=== PATIENT | male | born 1950 | race Caucasian/White ===

== ENCOUNTER 2016-12-16 09:55 | Observation (INO) | payer OTHER ==
--- NOTE | ~2016-12-16 | HP ---
History And Physical [place] [id number] [facility] [place]. [address] NAME: SALAZAR MCCARTY : 46 STATUS : ADM Jessica PAT#: [id number] AGE: 66 ADM/REG DATE : 12/16/16 MR#: [id number] REPORT SERV DATE: 12/16/16 DICTATED BY: ANTONELLA SEGURA DATE: 12/16/16 REPORT STATUS : Draft TRANSCRIBED BY: RAFFI DATE: 12/16/16 DATE OF ADMISSION: 12/16/2016 CHIEF COMPLAINT: Shortness of breath, cough, wheezing, and ataxia. HISTORY OF PRESENT ILLNESS: The patient is a very pleasant 66-year-old white male. He reports he has been sick for about a week. He has complained of cough, shortness of breath, and sputum production. No documented fevers but they have not taken his temperature. He has had no chills and sweats however. He has had no abdominal pain. No chest pain. No diarrhea. No emesis. He has had some mild nausea. He has had no dysuria. He also reports he is dizzy. He feels dizzy when he gets up to walk and he has felt generally weak and really has not felt like moving around a lot. I questioned him about the dizziness and he states it is more he is off balance. He does have a history of previous stroke. Again no documented fevers. He is up to date on his flu and pneumonia vaccine. PAST MEDICAL HISTORY: 1. COPD. 2. BRUCE, on CPAP. 3. Stroke x2. 4. PAD with right carotid stent. 5. Nephrolithiasis. 6. GERD. 7. Hypertension. 8. BPH. 9. Previous pneumonia. 10.Previous urinary tract infection. PAST SURGICAL HISTORY: 1. Bilateral carpal tunnel replaced. 2. Right wrist surgery. 3. Lizette fundoplication. 4. Left shoulder surgery. ALLERGIES: NO KNOWN DRUG ALLERGIES. SOCIAL HISTORY: He is . He quit smoking in 2008 but he smoked 1-1/2 packs per day for 50 years. He is retired from building houses. He uses social alcohol but has not had a drink in a very long time. FAMILY HISTORY: Positive for COPD in his mother. His father of CAD at 63. HOME MEDICATIONS: Reviewed and attached. REVIEW OF SYSTEMS: Full 10-point review of systems obtained. Pertinent positives mentioned in the HPI. History And Physical [address] [address] NAME: SALAZAR MCCARTY : 46 STATUS : ADM Jessica PAT#: [id number] AGE: 66 ADM/REG DATE : 12/16/16 MR#: [id number] REPORT SERV DATE: 12/16/16 DICTATED BY: ANTONELLA SEGURA DATE: 12/16/16 REPORT STATUS : Draft TRANSCRIBED BY: RAFFI DATE: 12/16/16 PHYSICAL EXAMINATION: VITAL SIGNS: Sats are 94% on room air, respiratory rate 24, blood pressure 133/74, pulse is 90, and temperature is 97.6. GENERAL: Well-developed white male. HEENT: Normocephalic, atraumatic. Throat is clear. NECK: Supple. HEART: Regular rate and rhythm. LUNGS: He has expiratory wheezing throughout all lung aquino. ABDOMEN: Soft, nontender, nondistended. EXTREMITIES: Warm and dry. SKIN: Intact. NEUROLOGIC: He is alert. He is oriented to person, place, and time. Speech is intact. Cranial nerves 2 through 12 are intact. He has symmetrical strength and tone in all four extremities. LAB AND X-RAY: EKG shows sinus rhythm with no acute ST-T wave changes. H and H 13.6 and 44, white count is 13, and platelets are 267. Sodium 143, potassium 3.8, chloride 107, CO2 of 28, BUN and creatinine 30 and 1.09. Glucose 116. Chest x-ray is stable with a chronic elevation of the left hemidiaphragm. ASSESSMENT/PLAN: 1. COPD exacerbation. We will treat with steroids, nebs, O2, antibiotics, place in observation. Culture his sputum although he has no fever. He has a little bit of a white count, but he has been on p.o. steroids at home and he has no evidence of pneumonia on chest x-ray. We will cover him with doxycycline; DuoNeb; Pulmicort; and Solu-Medrol. 2. Ataxia. No other real neurological symptoms. Certainly he could just be weak from feeling ill from his COPD, but I am going to get MRI of his brain since he has a history of 2 previous strokes. 3. Deep venous thrombosis prophylaxis. Subcutaneous Lovenox. 4. History of BRUCE on CPAP. 5. History of hypertension, stable. 6. Disposition pending above aforementioned plan and workup. SOURAV/RAFFI Antonella Segura M.D. / [id number] CC: David Coronel Jr, MD Kent Grotefendt, M.D.
--- NOTE | ~2016-12-16 | DS ---
Discharge Summary [facility] [address] [place]. [address] NAME: SALAZAR MCCARTY : 46 STATUS : DIS Jessica PAT#: [id number] AGE: 66 ADM/REG DATE : 12/16/16 MR#: [id number] REPORT SERV DATE: 12/18/16 DICTATED BY: BOUBACAR JAVIER DATE: 12/17/16 REPORT STATUS : Draft TRANSCRIBED BY: MODVincent DATE: 12/17/16 ADMISSION DATE: 12/16/2016 DISCHARGE DATE: 12/17/2016 DISCHARGE DIAGNOSES: Include: 1. Acute chronic obstructive pulmonary disease exacerbation. 2. Ataxia. 3. Dizziness. 4. Mild leukocytosis. 5. Obstructive sleep apnea on current CPAP therapy. 6. History of CVA x2. 7. Back pain. 8. Lower extremity neuropathy. 9. History of lumbar surgery. DISCHARGE MEDICATIONS: Plavix 75 mg daily, doxycycline 100 mg twice a day for four more days, Cymbalta 120 mg daily, Zantac 150 mg twice a day, Amitiza 24 mcg capsule p.o. twice a day, Protonix 40 mg daily, Florastor 250 mg daily, Flomax 0.4 mg twice a day, Zoloft 100 mg at bedtime but recommended weaning off this medication, Tudorza Pressair 400 mcg one puff inhaled daily, Proventil one puff inhaled p.r.n. for shortness of breath, Dulera 200/5 mcg two puffs inhaled twice a day, Spiriva 18 mcg one capsule inhaled daily, Crestor 40 mg daily at bedtime, Flonase nasal spray 50 mcg inhaled daily p.r.n., Percocet 10/325 one tablet every six hours p.r.n. HISTORY OF PRESENT ILLNESS: This is a pleasant 66-year-old white male, who presented with shortness of breath, cough, wheezing, and ataxia. Please see initial H and P of Dr. Marcela Segura. This patient has been admitted to the Hospitalist service for further evaluation and treatment. Started on some IV steroid therapy, antibiotic treatment, and aggressive nebulizer therapy. All of this improved his symptoms dramatically. By the following day, he was able to be ambulating in the hallway with an oxygen saturation of 94%, feeling much better. His orthostatics were reviewed and within normal limits. His white blood cells had come down. He did have an MRI of the brain during this admission. It was showing no acute process. He related to me that his CPAP machine is currently malfunctioning, and I have instructed him to obtain a new CPAP through his [employer] company. In review of all his medications, I did recommend him weaning off his sertraline as he is on that plus a rather large dose of Cymbalta, and I have instructed him to follow up with his primary care, Dr. Grullon to further discuss that and overall given the patient's symptomatic improvement requesting to be discharged home, was felt safe for discharge with the followup plan as described. I have updated the patient and at bedside. SHELLY/RAFFI Boubacar Javier NP Discharge Summary [address] [address] NAME: SALAZAR MCCARTY : 46 STATUS : DIS Jessica PAT#: [id number] AGE: 66 ADM/REG DATE : 12/16/16 MR#: [id number] REPORT SERV DATE: 12/18/16 DICTATED BY: BOUBACAR JAVIER DATE: 12/17/16 REPORT STATUS : Draft TRANSCRIBED BY: RAFFI DATE: 12/17/16 / [id number] CC: David Coronel Jr, MD Kent Grotefendt, M.D.
[2016-12-16 09:14] LABS: BASOPHILS 0.1 %; BASOPHILS ABSOLUTE 0.01 10/3/uL (0.0-0.16); EOSINOPHILS 0.2 %; EOSINOPHILS ABSOLUTE 0.03 10/3/uL (0.0-0.53); ER CBC TAT 0 Hrs 09 Mins; HEMATOCRIT 44.4 % (40.0-51.0); HEMOGLOBIN 13.6 g/dL (13.6-17.8); IMMATURE GRANULOCYTES 0.8 %; IMMATURE GRANULOCYTES ABSOLUTE 0.11 10/3/uL (0.0-0.11); LYMPHOCYTES 13.9 %; LYMPHOCYTES ABSOLUTE 1.82 10/3/uL (0.67-4.30); MEAN CORPUS HGB CONC 30.6 g/dL (32.0-36.0); MEAN PLATELET VOLUME 8.7 fL (9.2-13.0); MONOCYTES 10.1 %; MONOCYTES ABSOLUTE 1.33 10/3/uL (0.21-1.20); NEUTROPHILS 74.9 %; NEUTROPHILS ABSOLUTE 9.84 10/3/uL (2.02-8.40); PLATELET COUNT 267 10/3/uL (150-400); RED CELL COUNT 5.36 10/6/uL (4.7-6.1); WHITE BLOOD CELLS 13.1 10/3/uL (4.5-10.5)
[2016-12-16 09:15] LABS: MANUAL DIFF NO %; MEAN CORPUSCULAR HEMOGLOB 25.4 pg (26.0-34.0); MEAN CORPUSCULAR VOLUME 82.8 fL (80-100); RBC DISTRIBUTION WIDTH 16.5 % (12.0-16.0)
[2016-12-16 09:23] LABS: BUN (BLOOD UREA NITROGEN) 30 MG/DL (6-23); CALCIUM, SERUM 8.5 MG/DL (8.5-10.4); CHLORIDE, SERUM 107 MMOL/L (96-112); CO2 (CARBON DIOXIDE) 28 MMOL/L (24-34); CREATININE 1.09 MG/DL (0.70-1.30); GFR AFRICAN AMERICAN 80 ML/MIN (>=60); GFR NON AFRICAN AMERICAN 69 ML/MIN (>=60); GLUCOSE, SERUM 116 MG/DL (60-99); POTASSIUM, SERUM 3.8 MMOL/L (3.5-5.3); SODIUM, SERUM 143 MMOL/L (135-148)
[~2016-12-16 09:55] MED LIST: ASAB PO; AUGMENTIN PO; BIST PO; BROVANA15 MCG INH; CEFT5 PO; CIP5 PO; CRESTOR20 MG PO; CRESTOR40 MG PO; CYMBALTA60 PO; DCN100 PO; DEPO-TESTOS200 MG/ML IM; DULERA 200 MCG/13 GM INH; ENDOCET1 TA3 PO; FL250 PO; FLOMAX4 PO; FLONASE NAS; FLUOROURACIL51 TOP; K-TABS10 MEQ PO; LEVAQUIN5T PO; MIRALAXPKT PO; MUCINEX600 MG PO; NORCO1 TAB PO; NORV25 PO; PERCOCET1 TA4 PO; PERFOROM INH; PLAVIX PO; PROTONIX PO; PROVHFA INH; PYR200 PO; RANITIDINE300 MG PO; SENTAB PO; SPIRIVA INH; SUCR PO; SYMBICORT 80/4.1 INH INH; TESTOST CYP200 MG/ML IM; TUDORZA PRESS400 MCG INH; V5 PO; VITAMIN D1000 UNI1 PO; ZANTAC150 MG PO; ZOL100 PO; ZOL50 PO
[2016-12-16] MEDS ORDERED: CYMBALTA60 PO (10:21)
[2016-12-16] MEDS ORDERED: BIAXIN5 PO (10:24)
[2016-12-16] MEDS ORDERED: P20 PO (10:24)
[2016-12-16] MEDS ORDERED: AMITIZA24 PO (10:25)
[2016-12-16] MEDS ORDERED: PERCOCET 10/3251 TAB PO (10:27)
[2016-12-16] MEDS ORDERED: DULERA 200 MCG/13 GM INH (10:27)
[2016-12-16] MEDS ORDERED: TUDORZA PRESS400 MCG INH (10:27)
[2016-12-16] MEDS ORDERED: PROVHFA INH (10:27)
[2016-12-16] MEDS ORDERED: FLORASTOR250 MG PO (10:27)
[2016-12-16 13:56] LABS: PROCALCITONIN 0.07 ng/mL (<0.5)
[2016-12-17 05:41] LABS: BASOPHILS 0 %; EOSINOPHILS 0 %; HEMATOCRIT 43.5 % (40.0-51.0); HEMOGLOBIN 13.3 g/dL (13.6-17.8); IMMATURE GRANULOCYTES 0.8 %; IMMATURE GRANULOCYTES ABSOLUTE 0.09 10/3/uL (0.0-0.11); LYMPHOCYTES 6.1 %; LYMPHOCYTES ABSOLUTE 0.67 10/3/uL (0.67-4.30); MEAN CORPUS HGB CONC 30.6 g/dL (32.0-36.0); MEAN CORPUSCULAR HEMOGLOB 25.4 pg (26.0-34.0); MEAN CORPUSCULAR VOLUME 83.2 fL (80-100); MEAN PLATELET VOLUME 8.9 fL (9.2-13.0); MONOCYTES 2.5 %; MONOCYTES ABSOLUTE 0.27 10/3/uL (0.21-1.20); NEUTROPHILS 90.6 %; NEUTROPHILS ABSOLUTE 9.97 10/3/uL (2.02-8.40); PLATELET COUNT 254 10/3/uL (150-400); RBC DISTRIBUTION WIDTH 16.9 % (12.0-16.0); RED CELL COUNT 5.23 10/6/uL (4.7-6.1)
[2016-12-17 05:42] LABS: MANUAL DIFF NO %
[2016-12-17 05:54] LABS: BUN (BLOOD UREA NITROGEN) 33 MG/DL (6-23); CALCIUM, SERUM 9.1 MG/DL (8.5-10.4); CHLORIDE, SERUM 108 MMOL/L (96-112); CO2 (CARBON DIOXIDE) 25 MMOL/L (24-34); CREATININE 1.21 MG/DL (0.70-1.30); GFR AFRICAN AMERICAN 71 ML/MIN (>=60); GFR NON AFRICAN AMERICAN 61 ML/MIN (>=60); GLUCOSE, SERUM 173 MG/DL (60-99); POTASSIUM, SERUM 3.6 MMOL/L (3.5-5.3); SODIUM, SERUM 144 MMOL/L (135-148)
== END 2016-12-17 17:41 | disposition home or self-care (01) ==
LOC: ER 09:55 → CDU1 10:49
PROVIDERS: Emergency Medicine; Internal Medicine
DX: J44.1 Chronic obstructive pulmonary disease with (acute) exacerbation (principal); R27.0 Ataxia, unspecified; R42 Dizziness and giddiness; D72.829 Elevated white blood cell count, unspecified; G47.33 Obstructive sleep apnea (adult) (pediatric); M54.5 Low back pain; G62.9 Polyneuropathy, unspecified; N40.0 Benign prostatic hyperplasia without lower urinary tract symptoms; I73.9 Peripheral vascular disease, unspecified; K21.9 Gastro-esophageal reflux disease without esophagitis; Z79.51 Long term (current) use of inhaled steroids; Z87.891 Personal history of nicotine dependence; Z87.442 Personal history of urinary calculi; Z86.73 Personal history of transient ischemic attack (TIA), and cerebral infarction without residual deficits; Z79.899 Other long term (current) drug therapy; Z98.890 Other specified postprocedural states
CPT/HCPCS: 36600; 70551; 71020; 80048; 82962; 83880; 84145; 85025; 87070; 87205; 93005; 94640; 96372; 96374; 96376; 99285; A9270-GY; G0378; J2930